=== PATIENT | female | born 2000 | race Caucasian/White ===

== ENCOUNTER 2020-10-30 20:22 | Emergency (ER) | payer OTHER ==
[~2020-10-30] VITALS: Ht 172.7 cm; Wt 65.8 kg
[2020-10-31 00:12] LABS: BASOPHILS % (AUTO) 1 % (0-1); EOSINOPHILS % (AUTO) 3 % (1-7); LYMPHOCYTES % (AUTO) 41 % (22-44); MEAN CORPUSCULAR HEMOGLOBIN 28.8 pg (27.0-34.8); MEAN CORPUSCULAR HGB CONC 33.9 g/dL (32.4-35.8); MONOCYTES % (AUTO) 8 % (2-9); NEUTROPHILS % (AUTO) 46 % (42-75); PLATELET COUNT 272 x10^3/uL (130-400); RED CELL DISTRIBUTION WIDTH 13.3 % (9.6-15.2)
[2020-10-31 00:23] LABS: ALBUMIN 3.9 g/dL (3.4-5.0); CALCIUM 9.5 mg/dL (8.5-10.1); CHLORIDE 104 mmol/L (98-107); CREATININE 0.76 mg/dL (0.55-1.02)
[2020-10-31 00:29] LABS: ANION GAP 6 mmol/L (5-15)
--- NOTE | 2020-10-31 01:45 | NUR ---
PT TO ROOM FROM LOBBY. PT PRESENTS TO ED C/O STIFF AND SORE NECK, ACHEY JOINTS, HEADACHE. PT STATES SHE WAS SEEN AT [facility]ENT [facility] AND TOLD TO COME TO ED FOR POSSIBLE MENINGITIS. PT SITTING UPRIGHT ON ADRY DIAZ VSS. PT DENIES ANY NEEDS AT THIS TIME. CALL LIGHT AND PERSONAL BELONGINGS WITHIN REACH. FRIEND AT BEDSIDE. AWAITING ERP
[2020-10-31 02:40] VITALS: BP 117/67
== END 2020-10-31 02:42 | disposition home or self-care (01) ==
LOC: ED 21:00
DX: S16.1XXA Strain of muscle, fascia and tendon at neck level, initial encounter (principal); R51.9 Headache, unspecified; R07.89 Other chest pain; Z20.822 Contact with and (suspected) exposure to COVID-19; X58.XXXA Exposure to other specified factors, initial encounter; Y93.89 Activity, other specified; Y92.89 Other specified places as the place of occurrence of the external cause; Y99.8 Other external cause status
CPT/HCPCS: 36415; 80048; 82040; 84703; 85025; 87635; 99283